=== PATIENT | male | born 1995 | race Caucasian/White ===

== ENCOUNTER 2017-04-18 08:08 | Inpatient (IN) | payer OTHER ==
[2017-04-18 10:06] VITALS: BMI 23.6
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
[2017-04-18] MEDS ORDERED: guaiFENesin/D-METHORPHAN HB 10 ML UNIT-DOSE CUPS PO PRN (12:25)
[2017-04-18] MEDS ORDERED: LOPERAMIDE HCL 2 MG CAPSULE PO PRN (12:25)
[2017-04-18] MEDS ORDERED: P-EPHED 60MG/TRIPROLIDI 2.5MG TABLET PO PRN (12:25)
[2017-04-18] MEDS ORDERED: MAG HYDROX/AL HYDROX/SIMETH 30 ML UNIT-DOSE CUP PO PRN (12:25)
[2017-04-18] MEDS ORDERED: MAGNESIUM HYDROX 2400MG/30ML ORAL SUSPENSION 30 ML CUP PO PRN (12:25)
[2017-04-18] MEDS ORDERED: IBUPROFEN 400 MG TABLET (FP) PO PRN (12:25)
[2017-04-18] MEDS ORDERED: MENTHOL/PHENOL 1 EACH UD MM PRN (12:25)
[2017-04-18] MEDS ORDERED: MAGNESIUM CITRATE 300 ML BOTTLE PO PRN (12:25)
[2017-04-18] MEDS ORDERED: ACETAMINOPHEN 325 MG TABLET (FP) PO PRN (14:21)
[2017-04-18] MEDS ORDERED: chlordiazePOXIDE HCL 25 MG CAPSULE PO ONE (14:22)
[2017-04-18 14:46] LABS: HIV 1 & 2 AB NEGATIVE; HIV 1 AGp24 NEGATIVE
[2017-04-18] MEDS ORDERED: METHADONE HCL 10 MG TABLET (FOR DETOX USE ONLY) PO ONE ×2 (14:47→23:00)
--- NOTE | 2017-04-18 15:17 | CONSULT ---
[facility] Psychiatric Consult - Data Date of interview: 04/18/17 Admission source: [facility] Identifying data: Readmission to [facility] for this 21 y/o male seeking detox treatment on for heroin,marijuana,alcohol,cocaine and benzodiazepine dependence.Patient is single without children,domiciled and employed. Substance Abuse History: - Smoking Cessation. Smoking history: Current every day smoker. Have you smoked in the past 12 months: No. Aproximately how many cigarettes per day: 20. Cigars Per Day: 0. Hx Chewing Tobacco Use: No. Initiated information on smoking cessation: Yes. 'Breaking Loose' booklet given : 04/18/17. - Substance & Tx. History. Hx Alcohol Use: Yes. Hx Substance Use : Yes. Substance Use Type: Alcohol, Cocaine, Heroin, Tranquilizers. Hx Substance Use Treatment: Yes (Detox). - Substances Abused. Heroin. Route: Injection. Frequency: Daily. Amount used: 4 bags. Age of first use: 20. Date of Last Use: 04/17/17. Alcohol-beer/vodka. Route: Oral. Frequency: Daily. Amount used: 3-4 (12 oz.)/1/2 pt. Age of first use: 12. Date of Last Use: 04/17/17. Xanax. Route: Oral. Frequency: Daily. Amount used: 10 mg. Age of first use: 15. Date of Last Use: 04/17/17. Marijuana. Route: Smoking. Frequency: Daily. Amount used: $10. Age of first use: 13. Date of Last Use: 04/17/17. Confirmed by patient. Medical History: Bronchial asthma.History of orthosurgery for fracture of right elbow (2016). Psychiatric History: No history of psychiatric hospitalizations.Patient reports that he used to be followed at [facility]PD clinic.Was prescribed lexapro 10 mg/day (non adherent to medications).Diagnosed with Panic Disorder and MDD.No history of suicide attempts.Mr Kendall is requesting seroquel for insomnia. Physical/Sexual Abuse/Trauma History: Patient denies. Additional Comment: Urine Drug Screen Results: THC-Marijuana, NERISSA-Cocaine, OPI- Opiates, BZO-Benzodiazepines.Noted. Mental Status Exam - Mental Status Exam Alert and Oriented to: Time, Place, Person Cognitive Function: Good Patient Appearance: Well Groomed Mood: Hopeful, Euthymic Affect: Appropriate, Normal Range Patient Behavior: Fatigued, Appropriate, Cooperative Speech Pattern: Clear, Appropriate Voice Loudness: Normal Thought Process: Goal Oriented Thought Disorder: Not Present Hallucinations: Denies Suicidal Ideation: Denies Homicidal Ideation: Denies Insight/Judgement: Poor Sleep: Poorly, Difficulty falling asleep (wants seroquel) Appetite: Good Muscle strength/Tone: Normal Gait/Station: Normal Psychiatric Findings - Problem List ([place] 1, 2,3) (1) Alcohol dependence with uncomplicated withdrawal Current Visit: Yes Status: Acute (2) Marijuana dependence Current Visit: Yes Status: Acute (3) Opioid dependence with withdrawal Current Visit: Yes Status: Acute (4) Sedative, hypnotic or anxiolytic dependence with withdrawal, uncomplicated Current Visit: Yes Status: Acute (5) Nicotine dependence Current Visit: Yes Status: Acute Qualifiers: Nicotine product type: cigarettes Substance use status: uncomplicated Qualified Code(s): F17.210 - Nicotine dependence, cigarettes, uncomplicated (6) Substance induced mood disorder Current Visit: Yes Status: Acute (7) Asthma Current Visit: Yes Status: Chronic Qualifiers: Asthma severity: mild intermittent Asthma complication type: with status asthmaticus Qualified Code(s): J45.22 - Mild intermittent asthma with status asthmaticus (8) Insomnia Current Visit: Yes Status: Acute - Initial Treatment Plan Initial Treatment Plan: Psychoeducation.Detoxification.medications : seroquel 100 mg po hs + lexapro 10 mg po daily.Side effects/benefits discussed with the patient.He is in agreement with this careplan.Observation.
[2017-04-18] MEDS: NICOTINE 21 MG/24 HOURS TOPICAL PATCH TD SCH (15:22)
[2017-04-18] MEDS: BACITRACIN 0.9 GM PACKET TP SCH ×2 (15:22→22:22)
--- NOTE | 2017-04-18 16:13 | EKG ---
Test Reason : Blood Pressure : / mmHG Vent. Rate : 073 BPM Atrial Rate : 073 BPM P-R Int : 124 ms QRS Dur : 094 ms QT Int : 376 ms P-R-T Axes : 062 085 056 degrees QTc Int : 414 ms NORMAL SINUS RHYTHM NORMAL ECG NO PREVIOUS ECGS AVAILABLE Confirmed by KANWAL PARKER MD ([id number]) on 04/18/2017 4:12:35 PM Referred By: Confirmed By:KANWAL PARKER MD
[2017-04-18] MEDS: AMOX TR/POT CLAV 875MG/125MG TABLETS (FP) PO SCH (17:26)
[2017-04-18] MEDS: chlordiazePOXIDE HCL 25 MG CAPSULE PO SCH ×2 (17:26→22:21)
[2017-04-18] MEDS: NICOTINE POLACRILEX 2 MG GUM BUC PRN ×2 (17:28→22:22)
[2017-04-18] MEDS: chlordiazePOXIDE HCL 25 MG CAPSULE PO PRN (20:22)
[2017-04-18] MEDS: THIAMINE HCL 100 MG TABLET (FP) PO SCH (22:21)
[2017-04-18] MEDS: QUEtiapine FUMARATE 100 MG TABLET (FP) PO SCH (22:21)
[2017-04-18] MEDS: ALBUTEROL SO4 6.7 GM HFA INHALER IH PRN (22:22)
[2017-04-18] MEDS: diphenhydrAMINE HCL 50 MG CAPSULE PO PRN (22:22)
[2017-04-18 23:10] LABS: URINE APPEARANCE CLEAR; URINE BILIRUBIN NEGATIVE (NEGATIVE); URINE COLOR LTYELLOW; URINE GLUCOSE (UA) NEGATIVE (NEGATIVE); URINE KETONE NEGATIVE (NEGATIVE); URINE LEUK ESTERASE NEGATIVE (NEGATIVE); URINE NITRITE NEGATIVE (NEGATIVE); URINE PROTEIN NEGATIVE (NEGATIVE); URINE UROBILINOGEN NEGATIVE E.U./dl (0.2-1.0)
[2017-04-18 23:18] LABS: URINE BLOOD 1+ (NEGATIVE)
[2017-04-18 23:20] LABS: URINE MUCUS RARE; URINE WBC <1 /hpf (3-5)
[2017-04-19] MEDS: chlordiazePOXIDE HCL 25 MG CAPSULE PO SCH ×5 (06:07→22:35)
[2017-04-19] MEDS: AMOX TR/POT CLAV 875MG/125MG TABLETS (FP) PO SCH ×2 (07:12→17:09)
[2017-04-19] MEDS ORDERED: METHADONE HCL 10 MG TABLET (FOR DETOX USE ONLY) PO SCH (10:00)
[2017-04-19] MEDS: NICOTINE 21 MG/24 HOURS TOPICAL PATCH TD SCH (10:17)
[2017-04-19] MEDS: ESCITALOPRAM OXALATE 10 MG TABLET (FP) PO SCH (10:17)
[2017-04-19] MEDS: BACITRACIN 0.9 GM PACKET TP SCH ×2 (10:17→22:35)
[2017-04-19] MEDS: PRENATAL VITAMINS W/ FOLIC ACID TABLET (FP) PO SCH (10:17)
[2017-04-19] MEDS: ALBUTEROL SO4 6.7 GM HFA INHALER IH PRN ×2 (10:20→22:36)
[2017-04-19 10:21] LABS: MCH 27.3 pg (25.7-33.7); MCHC 33.1 g/dl (32.0-35.9); MEAN CELL VOLUME 82.5 fl (80-96); PLATELET COUNT 236 K/MM3 (134-434); RDW 14.4 % (11.9-15.9); WHITE BLOOD COUNT 6.3 K/mm3 (4.0-10.0)
[2017-04-19 10:36] LABS: ALBUMIN 4.4 g/dl (3.4-5.0); ANION GAP 9 (8-16); CALCIUM 9.5 mg/dL (8.5-10.1); CO2 32 mmol/L (21-32); GLUCOSE,RANDOM 94 mg/dL (74-106)
[2017-04-19 10:41] LABS: ALK PHOS 88 U/L (45-117); BILIRUBIN,TOTAL 0.8 mg/dL (0.2-1.0); COCKROFT - GAULT 122.65; SGOT/AST 22 U/L (15-37); SGPT/ALT 21 U/L (12-78); TOT PROT 7.7 g/dl (6.4-8.2)
--- NOTE | 2017-04-19 11:56 | PN ---
[facility] CIWA - CIWA Score Nausea/Vomitin Muscle Tremors: 3 Anxiety: 2 Agitation: 3 Paroxysmal Sweats: 3 Orientation: 0-Oriented Tacttile Disturbances: 3-Moderate Itch/Numb/Burn Auditory Disturbances: 2-Mild Harshness/Frighten Visual Disturbances: 0-None Headache: 0-None Present CIWA-Ar Total Score: 18 BHS COWS - Scale Resting Pulse: 1= [place] 81-100 Sweatin= Chills/Flushing Restless Observation: 1= Difficult to Sit Still Pupil Size: 0= Normal to Room Light Bone or Joint Aches: 2= Severe Diffuse Aches Runny Nose/ Eye Tearin= Nasal Congestion GI Upset > 30mins: 1= Stomach Cramp Tremor Observation of Outstretched Hands: 2= Slight Tremor Visible Yawning Observation: 1= 1-2x During Session Anxiety or Irritability: 2=Irritable/Anxious Goose Flesh Skin: 3=Piloerection COWS Score: 15 S Progress Note (SOAP) Subjective: Interrupted Sleep, Back Ache, Chills, Sweating, Body Aches, Tremors. Objective: PT. A & O X 3, OBSERVED AMBULATING ON UNIT. 04/19/17 11:54 Vital Signs Temperature 98.0 F 04/19/17 09:59 Pulse Rate 89 04/19/17 09:59 Respiratory Rate 20 04/19/17 09:59 Blood Pressure 132/78 04/19/17 09:59 O2 Sat by Pulse Oximetry (%) Laboratory Last Values WBC 6.3 K/mm3 (4.0-10.0) D 04/19/17 06:00 RBC 5.38 M/mm3 (4.00-5.60) 04/19/17 06:00 Hgb 14.7 GM/dL (11.7-16.9) D 04/19/17 06:00 Hct 44.3 % (35.4-49) D 04/19/17 06:00 MCV 82.5 fl (80-96) 04/19/17 06:00 MCHC 33.1 g/dl (32.0-35.9) 04/19/17 06:00 RDW 14.4 % (11.9-15.9) 04/19/17 06:00 Plt Count 236 K/MM3 (134-434) 04/19/17 06:00 MPV 9.0 fl (7.5-11.1) 04/19/17 06:00 Sodium 150 mmol/L (136-145) H 04/19/17 06:00 Potassium 5.1 mmol/L (3.5-5.1) 04/19/17 06:00 Chloride 109 mmol/L (98-107) H 04/19/17 06:00 Carbon Dioxide 32 mmol/L (21-32) 04/19/17 06:00 Anion Gap 9 (8-16) 04/19/17 06:00 BUN 8 mg/dL (7-18) D 04/19/17 06:00 Creatinine 1.0 mg/dL (0.7-1.3) D 04/19/17 06:00 Creat Clearance w eGFR > 60 (>60) 04/19/17 06:00 Random Glucose 94 mg/dL (74-106) 04/19/17 06:00 Calcium 9.5 mg/dL (8.5-10.1) 04/19/17 06:00 Total Bilirubin 0.8 mg/dL (0.2-1.0) 04/19/17 06:00 AST 22 U/L (15-37) D 04/19/17 06:00 ALT 21 U/L (12-78) 04/19/17 06:00 Alkaline Phosphatase 88 U/L (45-117) D 04/19/17 06:00 Total Protein 7.7 g/dl (6.4-8.2) 04/19/17 06:00 Albumin 4.4 g/dl (3.4-5.0) D 04/19/17 06:00 Urine Color Ltyellow 04/18/17 23:00 Urine Appearance Clear 04/18/17 23:00 Urine pH 8.0 (5.0-8.0) D 04/18/17 23:00 Ur Specific [place] 1.015 (1.005-1.025) 04/18/17 23:00 Urine Protein Negative (NEGATIVE) 04/18/17 23:00 Urine Glucose (UA) Negative (NEGATIVE) 04/18/17 23:00 Urine Ketones Negative (NEGATIVE) 04/18/17 23:00 Urine Blood 1+ (NEGATIVE) H 04/18/17 23:00 Urine Nitrite Negative (NEGATIVE) 04/18/17 23:00 Urine Bilirubin Negative (NEGATIVE) 04/18/17 23:00 Urine Urobilinogen Negative E.U./dl (0.2-1.0) 04/18/17 23:00 Ur Leukocyte Esterase Negative (NEGATIVE) 04/18/17 23:00 Urine RBC None /hpf (0-3) 04/18/17 23:00 Urine WBC <1 /hpf (3-5) 04/18/17 23:00 Urine Mucus Rare 04/18/17 23:00 RPR Titer Nonreactive (NONREACTIVE) 04/19/17 06:00 HIV 1&2 Antibody Screen Negative 04/18/17 12:00 HIV P24 Antigen Negative 04/18/17 12:00 LABS NOTED. Assessment: 04/19/17 11:56 WITHDRAWAL SYMPTOMS. Plan: CONTINUE DETOX. PRN FLEXERIL FOR BODY ACHES / MUSCLE SPASMS.
[2017-04-19] MEDS: CYCLOBENZAPRINE HCL 10 MG TABLET (FP) PO PRN ×2 (12:13→22:39)
[2017-04-19] MEDS: NICOTINE POLACRILEX 2 MG GUM BUC PRN ×2 (14:00→17:11)
[2017-04-19] MEDS: chlordiazePOXIDE HCL 25 MG CAPSULE PO PRN (14:00)
[2017-04-19] MEDS: QUEtiapine FUMARATE 100 MG TABLET (FP) PO SCH (22:35)
[2017-04-19] MEDS: THIAMINE HCL 100 MG TABLET (FP) PO SCH (22:35)
[2017-04-19] MEDS: diphenhydrAMINE HCL 50 MG CAPSULE PO PRN (22:36)
[2017-04-20] MEDS: chlordiazePOXIDE HCL 25 MG CAPSULE PO PRN ×2 (00:42→14:09)
[2017-04-20] MEDS: chlordiazePOXIDE HCL 25 MG CAPSULE PO SCH ×2 (05:49→10:07)
[2017-04-20] MEDS: AMOX TR/POT CLAV 875MG/125MG TABLETS (FP) PO SCH ×2 (07:44→17:25)
[2017-04-20] MEDS ORDERED: METHADONE HCL 5 MG TABLET (FOR DETOX USE ONLY) PO SCH (10:00)
[2017-04-20] MEDS: NICOTINE 21 MG/24 HOURS TOPICAL PATCH TD SCH (10:07)
[2017-04-20] MEDS: CYCLOBENZAPRINE HCL 10 MG TABLET (FP) PO PRN ×2 (10:07→19:36)
[2017-04-20] MEDS: ESCITALOPRAM OXALATE 10 MG TABLET (FP) PO SCH (10:07)
[2017-04-20] MEDS: BACITRACIN 0.9 GM PACKET TP SCH ×2 (10:07→22:27)
[2017-04-20] MEDS: PRENATAL VITAMINS W/ FOLIC ACID TABLET (FP) PO SCH (10:07)
[2017-04-20] MEDS: NICOTINE POLACRILEX 2 MG GUM BUC PRN ×3 (14:09→23:00)
[2017-04-20] MEDS: chlordiazePOXIDE 5 MG CAPSULE PO SCH ×2 (17:25→22:28)
--- NOTE | 2017-04-20 19:01 | PN ---
[facility] CIWA - CIWA Score Nausea/Vomitin-Mild Nausea/No Vomiting Muscle Tremors: 3 Anxiety: 2 Agitation: 4-Moderately Restless Paroxysmal Sweats: 3 Orientation: 0-Oriented Tacttile Disturbances: 3-Moderate Itch/Numb/Burn Auditory Disturbances: 0-None Visual Disturbances: 2-Mild Sensitivity Headache: 0-None Present CIWA-Ar Total Score: 18 S COWS - Scale Resting Pulse: 0= [place] 80 or Below Sweatin=Flushed/Facial Moisture Restless Observation: 1= Difficult to Sit Still Pupil Size: 0= Normal to Room Light Bone or Joint Aches: 1= Mild Discomfort Runny Nose/ Eye Tearin= Runny Nose/Eyes GI Upset > 30mins: 1= Stomach Cramp Tremor Observation of Outstretched Hands: 2= Slight Tremor Visible Yawning Observation: 1= 1-2x During Session Anxiety or Irritability: 2=Irritable/Anxious Goose Flesh Skin: 0=Smooth Skin COWS Score: 12 S Progress Note (SOAP) Subjective: Tremors, Anxious, Sweating. Objective: PT. A & O X 3, OBSERVED AMBULATING ON UNIT. 04/20/17 18:59 Vital Signs Temperature 98.6 F 04/20/17 13:57 Pulse Rate 78 04/20/17 13:57 Respiratory Rate 18 04/20/17 13:57 Blood Pressure 113/76 04/20/17 13:57 O2 Sat by Pulse Oximetry (%) Laboratory Tests 04/18/17 04/18/17 04/19/17 12:00 23:00 06:00 WBC 6.3 D RBC 5.38 Hgb 14.7 D Hct 44.3 D MCV 82.5 MCHC 33.1 RDW 14.4 Plt Count 236 MPV 9.0 Sodium Potassium Chloride Carbon Dioxide Anion Gap BUN Creatinine Creat Clearance w eGFR Random Glucose Calcium Total Bilirubin AST ALT Alkaline Phosphatase Total Protein Albumin Urine Color Ltyellow Urine Appearance Clear Urine pH 8.0 D Ur Specific [place] 1.015 Urine Protein Negative Urine Glucose (UA) Negative Urine Ketones Negative Urine Blood 1+ H Urine Nitrite Negative Urine Bilirubin Negative Urine Urobilinogen Negative Ur Leukocyte Esterase Negative Urine RBC None Urine WBC <1 Urine Mucus Rare RPR Titer HIV 1&2 Antibody Screen Negative HIV P24 Antigen Negative 04/19/17 04/19/17 06:00 06:00 WBC RBC Hgb Hct MCV MCHC RDW Plt Count MPV Sodium 150 H Potassium 5.1 Chloride 109 H Carbon Dioxide 32 Anion Gap 9 BUN 8 D Creatinine 1.0 D Creat Clearance w eGFR > 60 Random Glucose 94 Calcium 9.5 Total Bilirubin 0.8 AST 22 D ALT 21 Alkaline Phosphatase 88 D Total Protein 7.7 Albumin 4.4 D Urine Color Urine Appearance Urine pH Ur Specific [place] Urine Protein Urine Glucose (UA) Urine Ketones Urine Blood Urine Nitrite Urine Bilirubin Urine Urobilinogen Ur Leukocyte Esterase Urine RBC Urine WBC Urine Mucus RPR Titer Nonreactive HIV 1&2 Antibody Screen HIV P24 Antigen LABS NOTED. Assessment: 04/20/17 18:59 WITHDRAWAL SYMPTOMS. 04/20/17 18:59 Plan: CONTINUE DETOX. ADVISED PATIENT TO FOLLOW-UP WITH [facility] AFTER DISCHARGE FROM DETOX FOR GENERAL MEDICAL ASSESSMENT AND FOR ABSCESS OF RIGHT HAND AND FOR HISTORY OF INJURY TO RIGHT HAND.
[2017-04-20] MEDS: THIAMINE HCL 100 MG TABLET (FP) PO SCH (22:27)
[2017-04-20] MEDS: QUEtiapine FUMARATE 50 MG TABLET PO SCH (22:27)
[2017-04-20] MEDS: diphenhydrAMINE HCL 50 MG CAPSULE PO PRN (22:28)
[2017-04-20] MEDS: ALBUTEROL SO4 6.7 GM HFA INHALER IH PRN (23:07)
[2017-04-21] MEDS: chlordiazePOXIDE 5 MG CAPSULE PO SCH ×2 (05:56→10:20)
[2017-04-21] MEDS: AMOX TR/POT CLAV 875MG/125MG TABLETS (FP) PO SCH ×2 (07:51→17:48)
[2017-04-21] MEDS ORDERED: METHADONE HCL 10 MG TABLET (FOR DETOX USE ONLY) PO SCH (10:00)
[2017-04-21] MEDS: ESCITALOPRAM OXALATE 10 MG TABLET (FP) PO SCH (10:20)
[2017-04-21] MEDS: NICOTINE 21 MG/24 HOURS TOPICAL PATCH TD SCH (10:20)
[2017-04-21] MEDS: PRENATAL VITAMINS W/ FOLIC ACID TABLET (FP) PO SCH (10:20)
[2017-04-21] MEDS: BACITRACIN 0.9 GM PACKET TP SCH ×2 (10:20→21:27)
[2017-04-21] MEDS: CYCLOBENZAPRINE HCL 10 MG TABLET (FP) PO PRN ×2 (10:21→21:29)
[2017-04-21] MEDS: ALBUTEROL SO4 6.7 GM HFA INHALER IH PRN (10:23)
[2017-04-21] MEDS: NICOTINE POLACRILEX 2 MG GUM BUC PRN ×3 (10:24→20:26)
[2017-04-21] MEDS: hydrOXYzine PAMOATE 50 MG CAPSULE (FP) PO PRN (15:35)
--- NOTE | 2017-04-21 16:49 | PN ---
BHS Progress Note (SOAP) Subjective: Anxious, sweating, restless, interrupted sleep Objective: 04/21/17 16:47 Last Vital Signs Temp Pulse Resp BP Pulse Ox 96.7 F L 90 18 113/77 04/21/17 13:46 04/21/17 13:46 04/21/17 13:46 04/21/17 13:46 Laboratory Tests 04/18/17 04/18/17 04/19/17 12:00 23:00 06:00 WBC 6.3 D RBC 5.38 Hgb 14.7 D Hct 44.3 D MCV 82.5 MCHC 33.1 RDW 14.4 Plt Count 236 MPV 9.0 Sodium Potassium Chloride Carbon Dioxide Anion Gap BUN Creatinine Creat Clearance w eGFR Random Glucose Calcium Total Bilirubin AST ALT Alkaline Phosphatase Total Protein Albumin Urine Color Ltyellow Urine Appearance Clear Urine pH 8.0 D Ur Specific [place] 1.015 Urine Protein Negative Urine Glucose (UA) Negative Urine Ketones Negative Urine Blood 1+ H Urine Nitrite Negative Urine Bilirubin Negative Urine Urobilinogen Negative Ur Leukocyte Esterase Negative Urine RBC None Urine WBC <1 Urine Mucus Rare RPR Titer HIV 1&2 Antibody Screen Negative HIV P24 Antigen Negative 04/19/17 04/19/17 06:00 06:00 WBC RBC Hgb Hct MCV MCHC RDW Plt Count MPV Sodium 150 H Potassium 5.1 Chloride 109 H Carbon Dioxide 32 Anion Gap 9 BUN 8 D Creatinine 1.0 D Creat Clearance w eGFR > 60 Random Glucose 94 Calcium 9.5 Total Bilirubin 0.8 AST 22 D ALT 21 Alkaline Phosphatase 88 D Total Protein 7.7 Albumin 4.4 D Urine Color Urine Appearance Urine pH Ur Specific [place] Urine Protein Urine Glucose (UA) Urine Ketones Urine Blood Urine Nitrite Urine Bilirubin Urine Urobilinogen Ur Leukocyte Esterase Urine RBC Urine WBC Urine Mucus RPR Titer Nonreactive HIV 1&2 Antibody Screen HIV P24 Antigen Labs noted Assessment: 04/21/17 16:48 Withdrawal symptoms Plan: Continue detox Encouraged to drink lots of water
[2017-04-21] MEDS: chlordiazePOXIDE HCL 10 MG CAPSULE PO SCH ×2 (17:48→22:00)
[2017-04-21] MEDS: QUEtiapine FUMARATE 50 MG TABLET PO SCH (21:27)
[2017-04-21] MEDS: THIAMINE HCL 100 MG TABLET (FP) PO SCH (21:28)
[2017-04-21] MEDS: diphenhydrAMINE HCL 50 MG CAPSULE PO PRN (21:29)
[2017-04-22] MEDS: hydrOXYzine PAMOATE 50 MG CAPSULE (FP) PO PRN (04:39)
[2017-04-22] MEDS: chlordiazePOXIDE HCL 10 MG CAPSULE PO SCH (05:27)
[2017-04-22] MEDS: CYCLOBENZAPRINE HCL 10 MG TABLET (FP) PO PRN (05:30)
[2017-04-22] MEDS ORDERED: METHADONE HCL 5 MG TABLET (FOR DETOX USE ONLY) PO SCH (06:00)
[2017-04-22 06:22] VITALS: BP 134/79; PULSE 90; TEMP 97.3
[2017-04-22] MEDS: NICOTINE POLACRILEX 2 MG GUM BUC PRN (06:42)
[2017-04-22] MEDS: AMOX TR/POT CLAV 875MG/125MG TABLETS (FP) PO SCH (07:59)
[2017-04-22] MEDS ORDERED: METHADONE HCL 10 MG TABLET (FOR DETOX USE ONLY) PO SCH (10:00)
--- NOTE | 2017-04-22 12:16 | DS ---
[facility] Detox Discharge Summary Admission Date: 04/18/17 Discharge Date: 04/22/17 - History Present History: Alcohol Dependence, Cannabis Dependence, Opioid Dependence, Sedative Dependence Additional Comments: ADVISED PATIENT TO FOLLOW-UP WITH [facility] AFTER DISCHARGE FOR GENERAL MEDICAL ASSESSMENT AND FOR HISTORY OF ABSCESS OF RIGHT HAND AND FOR HISTORY OF INJURY TO RIGHT HAND. REMAINDER OF COURSE OF ANTIBIOTIC (AUGMENTIN) SENT TO PT.'S PHARMACY. PT. ADVISED TO CONTINUE TO APPLY BACITRACIN TO RIGHT HAND UNTIL WOUND HEALS. PATIENT VERBALIZED UNDERSTANDING OF INSTRUCTIONS / RECOMMENDATIONS. Pertinent Past History: Asthma, Depression. - Physical Exam Results Vital Signs: Vital Signs Temperature 97.3 F L 04/22/17 06:21 Pulse Rate 90 04/22/17 06:21 Respiratory Rate 18 04/22/17 06:21 Blood Pressure 134/79 04/22/17 06:21 O2 Sat by Pulse Oximetry (%) Pertinent Admission Physical Exam Findings: WITHDRAWAL SYMPTOMS. Laboratory Tests 04/18/17 04/18/17 04/19/17 12:00 23:00 06:00 WBC 6.3 D RBC 5.38 Hgb 14.7 D Hct 44.3 D MCV 82.5 MCHC 33.1 RDW 14.4 Plt Count 236 MPV 9.0 Sodium Potassium Chloride Carbon Dioxide Anion Gap BUN Creatinine Creat Clearance w eGFR Random Glucose Calcium Total Bilirubin AST ALT Alkaline Phosphatase Total Protein Albumin Urine Color Ltyellow Urine Appearance Clear Urine pH 8.0 D Ur Specific [place] 1.015 Urine Protein Negative Urine Glucose (UA) Negative Urine Ketones Negative Urine Blood 1+ H Urine Nitrite Negative Urine Bilirubin Negative Urine Urobilinogen Negative Ur Leukocyte Esterase Negative Urine RBC None Urine WBC <1 Urine Mucus Rare RPR Titer HIV 1&2 Antibody Screen Negative HIV P24 Antigen Negative 04/19/17 04/19/17 06:00 06:00 WBC RBC Hgb Hct MCV MCHC RDW Plt Count MPV Sodium 150 H Potassium 5.1 Chloride 109 H Carbon Dioxide 32 Anion Gap 9 BUN 8 D Creatinine 1.0 D Creat Clearance w eGFR > 60 Random Glucose 94 Calcium 9.5 Total Bilirubin 0.8 AST 22 D ALT 21 Alkaline Phosphatase 88 D Total Protein 7.7 Albumin 4.4 D Urine Color Urine Appearance Urine pH Ur Specific [place] Urine Protein Urine Glucose (UA) Urine Ketones Urine Blood Urine Nitrite Urine Bilirubin Urine Urobilinogen Ur Leukocyte Esterase Urine RBC Urine WBC Urine Mucus RPR Titer Nonreactive HIV 1&2 Antibody Screen HIV P24 Antigen LABS NOTED. - Treatment Hospital Course: Detox Protocol Followed, Detoxed Safely, Responded well, Discharged Condition Good Patient has Accepted a Rehab Referral to: PT. TO GO HOME AND WILL LATER PURSUE ADMISSION AT [facility]. - Medication Discharge Medications: Ambulatory Orders Albuterol Sulfate Inhaler - [Ventolin HFA Inhaler -] 2 inh IH Q4H PRN #1 inhaler 04/22/17 Amox-Tr/K Cl [Augmentin - 875Mg Tablet] 1 tab PO Q12H #8 tablet 04/22/17 - Diagnosis (1) Abscess Status: Acute (2) Alcohol dependence with uncomplicated withdrawal Status: Acute (3) Insomnia Status: Chronic Qualifiers: Insomnia type: unspecified Qualified Code(s): G47.00 - Insomnia, unspecified (4) Marijuana dependence Status: Acute (5) Nicotine dependence Status: Chronic Qualifiers: Nicotine product type: cigarettes Substance use status: uncomplicated Qualified Code(s): F17.210 - Nicotine dependence, cigarettes, uncomplicated (6) Opioid dependence with withdrawal Status: Acute (7) Sedative, hypnotic or anxiolytic dependence with withdrawal, uncomplicated Status: Acute (8) Substance induced mood disorder Status: Acute (9) Asthma Status: Chronic Qualifiers: Asthma severity: mild intermittent Asthma complication type: uncomplicated Qualified Code(s): J45.20 - Mild intermittent asthma, uncomplicated - AMA Did Patient Leave Against Medical Advice: No
[2017-04-23] MEDS ORDERED: METHADONE HCL 5 MG TABLET (FOR DETOX USE ONLY) PO SCH (06:00)
== END 2017-04-22 09:12 | disposition home or self-care (01) | DRG 773 ==
LOC: YASAS 08:08 → Y3N 13:50
PROVIDERS: ADMIT Internal Medicine; ATTEND Internal Medicine
PROC: HZ2ZZZZ Detoxification Services for Substance Abuse Treatment (ICD-10-PCS; principal; 2017-04-18)
DX: F11.23 Opioid dependence with withdrawal (principal); F13.230 Sedative, hypnotic or anxiolytic dependence with withdrawal, uncomplicated; F10.230 Alcohol dependence with withdrawal, uncomplicated; F12.20 Cannabis dependence, uncomplicated; F17.210 Nicotine dependence, cigarettes, uncomplicated; F19.24 Other psychoactive substance dependence with psychoactive substance-induced mood disorder; G47.00 Insomnia, unspecified; J45.20 Mild intermittent asthma, uncomplicated; L02.91 Cutaneous abscess, unspecified
CPT/HCPCS: 36415; 80053; 81003; 81015; 85027; 86593; 87389; 93005; 93010